=== PATIENT | female | born 2000 | race Caucasian/White ===

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

== ENCOUNTER 2020-05-21 08:00 | Emergency (ER) | payer OTHER, MEDICAID, SELFPAY ==
[2020-05-21 08:18] VITALS: BP 108/59; PULSE 62; RESP 16; TEMP 36.4; O2SAT 100; BMI 25.6
--- NOTE | 2020-05-21 08:22 | ED_ITS ---
HPI - URI/Sore Throat General Chief Complaint: Upper Respiratory Symptoms Stated Complaint: sore throat, puss, cough, sob, poss UTI Time Seen by Provider: 05/21/20 08:22 Source: patient Mode of arrival: Ambulatory Limitations: no limitations History of Present Illness HPI Narrative: This is a 20-year-old female comes in with complaint of red tonsils and she states pus pockets. She denies any fevers, no chills, no hoarseness or pain in the back of her throat. She has had some mild nasal congestion. She states a little bit of cough occasional shortness of breath, no chest pain or pressure. No nausea, no vomiting, no other GI or urinary symptoms except for some dysuria occasionally but not currently. No frequency, sense of incomplete emptying or sense of urgency. She is currently on her menses. Patient states she did develop a rash for several hours about a week ago that was itchy on her back. She states resolved and has not returned. She states that she was positive for strep C several weeks ago the initial point of care strep was negative but the culture came back positive and she took cephalexin and dexamethasone and her symptoms resolved. She denies any other medication issues besides IBS, she takes sertraline daily. No prior surgeries. She denies allergies to medications. Positive for tobacco use, denies alcohol and does use marijuana but no other illicit. Related Data Previous Rx's Medication Instructions Recorded cefdinir 300 mg PO BID #14 cap 06/19/19 dicyclomine 20 mg PO TID #14 tab 06/19/19 naproxen [Naprosyn] 500 mg PO BID PRN #20 tab 06/19/19 ondansetron HCl [Zofran] 4 mg PO Q6H PRN #10 tab 06/19/19 loratadine [Claritin] 10 mg PO DAILY #10 tab 05/21/20 Allergies Allergy/AdvReac Type Severity Reaction Status Date / Time No Known Drug Allergies Allergy Verified 06/18/19 20:50 Review of Systems Review of Systems ROS Unobtainable: All systems reviewed & are unremarkable except as noted in HPI and below Patient History Social History Smoking Status: Current every day smoker Smoking Status: Current every day smoker tobacco type: vaping Substance Use Type: marijuana Exam Narrative Exam Narrative: GEN: well nourished, well appearing female, alert and oriented x 3, patient appears to be in mild distress. HEENT: Atraumatic, pupils are equal round reactive to light, extraocular movements are intact, nares are clear, TMs are clear with no fluid. Throat is clear without any exudates, positive for bilateral erythema, very mild tonsillar enlargement, for positive for cobblestoning posterior oropharynx, no purulence changes noted, no uvular deviation HEART: Regular rate and rhythm without murmur, clicks, rubs. Pulses are equal in upper and lower extremities LUNGS:Lungs clear to auscultation, no wheezes, rales, crackles, chest moves symmetrically, tachypnea, no accessory muscle use. ABD:bowel sounds normal, soft, non-tender, no guarding, rebound, rigidity, no masses noted, no hepatosplenomegaly :No CVA tenderness MSCL: full range of motion, normal gait NEURO:CN 2-12 intact, sensation normal SKIN: No rash, erythema or skin changes noted. Initial Vital Signs Initial Vital Signs: Vital Signs Temperature 97.6 F 05/21/20 08:18 Pulse Rate 62 05/21/20 08:18 Respiratory Rate 16 05/21/20 08:18 Blood Pressure 108/59 L 05/21/20 08:18 Pulse Oximetry 100 05/21/20 08:18 Course Orders Ordered: ED Orders 05/21/20 08:50 Throat Culture Stat Vital Signs Vital signs: Vital Signs - 8 hr 05/21/20 08:18 05/21/20 09:15 Temperature 97.6 F 98.0 F Pulse Rate 62 57 L Respiratory Rate 16 12 Blood Pressure 108/59 L 104/63 Pulse Oximetry 100 97 MDM - URI/Sore Throat Lab Data Labs: Point of Care Testing Test Results Negative Rapid Strep A Negative Urine Dip Bedside Urine Glucose Negative Bedside Urine Bilirubin - Negative Bedside Urine Ketone - Negative Urine Specific [place] 1.030 Bedside Urine Occult Blood +++ Bedside Urine pH 6.0 Bedside Urine Protein - Negative Bedside Urine Urobilinogen - Negative Bedside Urine Nitrite - Negative Bedside Urine Leukocytes - Negative Esterase [facility] Narrative Medical decision making narrative: POC strep is negative the patient states she had a positive strep C culture several weeks ago so culture was reordered. Plan to recontact patient if it is positive but start with an oral antihistamine initially as she appears to have a little bit of postnasal drip. Discharge Plan Departure Patient Disposition: Home Clinical Impression: Pharyngitis Instructions: DI for Pharyngitis/Tonsillopharyngitis -- Adult Activity Restrictions/Additional Instructions: Follow-up with your physician in next week if her symptoms are not resolving or improving. Your throat culture is pending and will take 2-3 days to result. I would recommend taking Claritin, Zyrtec or similar [id number] antihistamine once daily. Return to the ER for fevers, rapidly worsening swelling, difficulty breathing or swallowing, stridor, difficulty with breathing, chest pain, persistent vomiting, swelling in her extremities or other new or concerning symptoms. Prescriptions: New loratadine [Claritin] 10 mg tablet 10 mg PO DAILY Qty: 10 RF: 0 No Action naproxen [Naprosyn] 500 mg tablet 500 mg PO BID PRN (Reason: pain) Qty: 20 RF: 0 ondansetron HCl [Zofran] 4 mg tablet 4 mg PO Q6H PRN (Reason: nausea and vomiting) Qty: 10 RF: 0 dicyclomine 20 mg tablet 20 mg PO TID Qty: 14 RF: 0 cefdinir 300 mg capsule 300 mg PO BID Qty: 14 RF: 0
[2020-05-21 09:15] VITALS: BP 104/63; PULSE 57; RESP 12; TEMP 36.7; O2SAT 97
== END 2020-05-21 09:15 | disposition home or self-care (01) ==
PROVIDERS: Emergency Provider Emergency Medicine
DX: J02.9 Acute pharyngitis, unspecified (principal); R09.82 Postnasal drip; R05 Cough; R06.02 Shortness of breath; R21 Rash and other nonspecific skin eruption
CPT/HCPCS: 81003; 81025; 87070; 87077; 87147; 87880; 99281; 99282

== ENCOUNTER 2020-08-23 23:34 | Emergency (ER) | payer OTHER, MEDICAID, SELFPAY ==
[2020-08-23 23:41] VITALS: BP 132/75; PULSE 85; RESP 18; TEMP 36.6; O2SAT 100; BMI 27.3
[2020-08-24 00:08] LABS: Bilirubin Urine UA NEGATIVE (NEGATIVE); Color Urine UA YELLOW; Glucose Urine UA NEGATIVE (Negative); Ketones Urine UA TRACE (NEGATIVE); Leukocyte Esterase Urine UA 2+ (NEGATIVE); Nitrite Urine UA NEGATIVE (Negative); Occult Blood Urine UA 3+ (Negative); Protein Urine UA NEGATIVE (Negative); Urobilinogen Urine UA 0.2 E.U./dL (0.2)
[2020-08-24 00:11] LABS: Appearance Urine UA Slightly Cloudy
--- NOTE | 2020-08-24 00:12 | ED.GENADULT ---
HPI - General Adult General Chief complaint: Urogenital-Female Stated complaint: UTI getting worse Time Seen by Provider: 08/23/20 23:55 Source: patient Mode of arrival: Ambulatory Limitations: no limitations History of Present Illness HPI narrative: Patient is a 20-year-old female who 3 days ago was seen in outside facility after having some lower pelvic pain. She states she was diagnosed with a urinary tract infection. She was given a prescription for Bactrim. She is take 1.5 days worth of the Bactrim. She did not take any of the antibiotics today because she did not feel like it was helping her. Since that time she has developed more symptoms consistent with her prior history of yeast infections. She states she has had urinary tract infections in the past and this does not feel like a urinary tract infection. She has had multiple yeast infections in the past and this does feel like a yeast infection. She does admit that it did not feel like this a couple days ago when she was seen. She has no back pain. No vomiting. States that Diflucan has helped her in the past. Related Data Previous Rx's Medication Instructions Recorded cefdinir 300 mg PO BID #14 cap 06/19/19 dicyclomine 20 mg PO TID #14 tab 06/19/19 naproxen [Naprosyn] 500 mg PO BID PRN #20 tab 06/19/19 ondansetron HCl [Zofran] 4 mg PO Q6H PRN #10 tab 06/19/19 loratadine [Claritin] 10 mg PO DAILY #10 tab 05/21/20 fluconazole [Diflucan] 150 mg PO DAILY #1 tab 08/24/20 Allergies Allergy/AdvReac Type Severity Reaction Status Date / Time No Known Drug Allergies Allergy Verified 06/18/19 20:50 Review of Systems Constitutional Constitutional: Denies fever(s) Cardiovascular Cardiovascular: Denies chest pain and Denies dyspnea Respiratory Respiratory: Denies dyspnea Gastrointestinal Gastrointestinal: Reports abdominal pain, Denies nausea and Denies vomiting Genitourinary Genitourinary: Denies dysuria and Reports genital pain Genitourinary: Denies dysuria and Denies vaginal discharge Comments: She has no vaginal discharge but states she normally does not when she has used infections Musculoskeletal Musculoskeletal: Denies arthralgias and Denies myalgias Integumentary/Breasts Skin/Breast: Denies rash Neurologic Neurologic: Denies behavioral changes Psychiatric Psychiatric: Denies behavioral changes Hematologic/Lymphatic On Anticoagulants: No Allergic/Immunologic Allergic/Immunologic: Denies urticaria Patient History Medical History Yeast infection Social History Smoking Status: Current every day smoker Smoking Status: Current every day smoker tobacco type: vaping Substance Use Type: marijuana Exam Initial Vital Signs Initial Vital Signs: Vital Signs Temperature 98 F 08/23/20 23:41 Pulse Rate 85 08/23/20 23:41 Respiratory Rate 18 08/23/20 23:41 Blood Pressure 132/75 08/23/20 23:41 Pulse Oximetry 100 08/23/20 23:41 Const General: cooperative and comfortable Limitations: mental status not altered HENMT Head: normal to inspection and normocephalic Resp Effort & Inspection: normal respiratory effort Cardio Rate: regular rate GI Inspection: non-distended Palpation: soft, No firm and No tender Skin Lesions: no lesions Rashes: no rashes Neuro General: patient alert, patient awake and patient oriented x3 Cognition: normal cognition Extrem General: capillary refill normal Psych Appearance: grossly normal and well kempt Course Orders Ordered: ED Orders 08/23/20 23:45 Urine Culture Stat 08/23/20 23:50 Urinalysis and Microscopic Stat Discontinued Medications Fluconazole (Fluconazole 150 Mg Tablet) 150 mg PO NOW ONE Stop: 08/24/20 00:14 Last Admin: 08/24/20 00:33 Dose: 150 mg Documented by: BIJAL Vital Signs Vital signs: Vital Signs - 8 hr 08/23/20 23:41 Temperature 98 F Pulse Rate 85 Respiratory Rate 18 Blood Pressure 132/75 Pulse Oximetry 100 Medical Decision Making Lab Data Lab results reviewed: Yes I reviewed the patient's lab results. Labs: Lab Results 08/23/20 Range/Units 23:45 Urine Color Yellow Urine Appearance Slightly cloudy Urine pH 7.0 (4.5-8.0) Ur Specific [place] 1.020 (1.000-1.035) Urine Protein Negative (Negative) Urine Glucose (UA) Negative (Negative) g/dL Urine Ketones Trace H (NEGATIVE) Urine Occult Blood 3+ H (Negative) Urine Nitrate Negative (Negative) Urine Bilirubin Negative (NEGATIVE) Urine Urobilinogen 0.2 (0.2) E.U./dL Ur Leukocyte Esterase 2+ H (NEGATIVE) Urine RBC 1-5/hpf (0-5/HPF) Urine WBC 10-30/hpf H (0-5/HPF) Ur Squamous Epith Cells 1-5 /hpf D (0-5/HPF) Urine Bacteria Few (2-10) H (None) Ur Culture Indicated? Specimen cultured MDM Narrative Medical decision making narrative: Patient's urinalysis today is somewhat concerning about an infection. Patient states that she feels like that she has a yeast infection. Had a discussion with her regarding this. Plan will be is to give her dose of Diflucan here in the emergency department. Informed her that she should complete the course of Bactrim as previously prescribed. She was then given a prescription for another dose of Diflucan that she can take at the end of the course of antibiotics. Low suspicion for pyelonephritis today. Feel we can hold on I pelvic exam given her presentation. She was given return precautions and follow-up instructions. She expressed understanding and agreement. Discharge Plan Departure Patient Disposition: Home Clinical Impression: Vaginal yeast infection Instructions: DI for Vaginal Yeast Infection Activity Restrictions/Additional Instructions: I do recommend that you complete the course of antibiotics as previously directed. Take the Diflucan as directed as well with 1 of the tablets being at the end of your course of antibiotics. Contact your primary provider for follow-up. Return to the emergency department for any new or worsening symptoms Prescriptions: New fluconazole [Diflucan] 150 mg tablet 150 mg PO DAILY Qty: 1 RF: 0 No Action loratadine [Claritin] 10 mg tablet 10 mg PO DAILY Qty: 10 RF: 0 naproxen [Naprosyn] 500 mg tablet 500 mg PO BID PRN (Reason: pain) Qty: 20 RF: 0 ondansetron HCl [Zofran] 4 mg tablet 4 mg PO Q6H PRN (Reason: nausea and vomiting) Qty: 10 RF: 0 dicyclomine 20 mg tablet 20 mg PO TID Qty: 14 RF: 0 cefdinir 300 mg capsule 300 mg PO BID Qty: 14 RF: 0
[2020-08-24 00:23] LABS: Bacteria Urine Few (2-10); Culture Indicated Urine Specimen Cultured; RBC Urine 1-5/HPF (0-5/HPF); Squamous Epithelial Cell Urine 1-5 /HPF (0-5/HPF); WBC Urine 10-30/HPF (0-5/HPF)
[2020-08-24] MEDS: FLUCONAZOLE 150 MG TABLET PO (00:33)
== END 2020-08-24 00:38 | disposition home or self-care (01) ==
PROVIDERS: Emergency Provider Emergency Medicine
DX: B37.3 Candidiasis of vulva and vagina (principal)
CPT/HCPCS: 81001; 87077; 87086; 99283

== ENCOUNTER 2020-10-08 12:30 | Emergency (ER) | payer OTHER, MEDICAID, SELFPAY ==
[2020-10-08] VITALS (7 sets, daily range): BP systolic 96–107; BP diastolic 55–64; PULSE 68–91; RESP 16; TEMP 36.2; O2SAT 95–99; BMI 28.9
[2020-10-08 13:13] LABS: Add Manual Diff / Slide Review NO; Basophils Absolute Auto 100 /uL (0-100); Basophils Percent Auto 0.6 % (0-2); Eosinophils Absolute Auto 100 /uL (0-450); Eosinophils Percent Auto 1.3 % (2-4); Hematocrit 39.7 % (36-46); Hemoglobin 13.3 g/dL (12.0-16.0); Lymphocytes Absolute Auto 2300 /uL (1100-4500); Lymphocytes Percent Auto 24.7 % (25-40); Mean Corpuscular HGB Conc 33.6 % (30-36); Mean Corpuscular Hemoglobin 29.5 PG (26-34); Mean Corpuscular Volume 87.8 fL (80-100); Monocytes Absolute Auto 800 /uL (0-900); Monocytes Percent Auto 8.5 % (3-14); Neutrophils Absolute Auto 5900 /uL (1500-7000); Neutrophils Percent Auto 64.9 % (50-75); Platelet Count 307 X10^3/uL (150-400); Red Blood Cell Count 4.52 X10^6/uL (4.0-5.2); Red Cell Distribution Width 13.7 % (11.6-14.8); White Blood Cell Count 9.1 X10^3/uL (4.5-11.0)
[2020-10-08 13:16] LABS: INR 1.2 (0.9-1.3)
[2020-10-08 13:18] LABS: Alanine Aminotransferase 20 IU/L (<35); Albumin 4.6 g/dL (3.5-5.0); Albumin Globulin Ratio 1.4 (1.0-2.8); Alkaline Phosphatase 79 U/L (38-126); Aspartate Aminotransferase 27 IU/L (14-36); BUN Creatinine Ratio 27.1 (6-22); Blood Urea Nitrogen 16 mg/dL (7-17); Calcium 9.7 mg/dL (8.4-10.2); Carbon Dioxide 26 mmol/L (22-32); Chloride 103 mmol/L (98-107); Estimated Glomerular Filt Rate > 60.0 mL/min (>60); Globulin 3.4 g/dL (1.7-4.1); Glucose 143 mg/dL (70-100); HEMOLYSIS < 15 (0-50); Lipase 27 U/L (23-300); Potassium 3.6 mmol/L (3.4-5.1); Sodium 137 mmol/L (137-145)
[2020-10-08 13:19] LABS: PTT Partial Thromboplastin Tim 35 SECONDS (26.4-36.2)
--- NOTE | 2020-10-08 13:23 | DI.US.S_ITS ---
PROCEDURE: US PELVIC COMPLETE INDICATIONS: RLQ PAIN TECHNIQUE: Real-time scanning was performed of the pelvic organs, with image documentation. Additional endovaginal scanning was necessary due to incomplete visualization of the adnexal and endometrial structures by transabdominal scanning. COMPARISON: [facility], US, US PELVIC COMPLETE, 10/09/2018, 9:45. [facility], US, US ABDOMEN LIMITED, 06/19/2019, 3:33. FINDINGS: Uterus: Uterus is normal in size at 7.6 x 3.4 x 5.4 cm. The endometrium measures 9 mm in combined thickness. Ovaries: The right ovary measures 2.4 x 1.9 x 1.7 and demonstrates an unremarkable sonographic appearance. The left ovary measures 2.9 x 2.2 x 2.9 cm and demonstrates a solid-appearing mass with increased, low resistance vascular flow that measures 2.1 x 1.4 x 2.2 cm. This focus is not seen on the prior 2019 outside ultrasound. Normal appearing arterial waveforms are confirmed to each ovary. Other: No pathologic free abdominal or pelvic fluid. No appendix (either normal or abnormal) is identified on this study. IMPRESSION: Appendix not seen. Negative for ovarian torsion. Incidental note is made of an abnormal LEFT ovary, with a solid-appearing mass with increased low resistance flow. At clinical discretion, a followup pelvic ultrasound could be considered in 6 weeks to assure resolution/ improvement. Dictated by: Acosta Raymond M.D. on 10/08/2020 at 12:50 Approved by: Acosta Raymond M.D. on 10/08/2020 at 12:54
--- NOTE | 2020-10-08 13:46 | DI.CT.S_ITS ---
PROCEDURE: CT ABDOMEN PELVIS W CON INDICATIONS: RLQ pain, probably appe TECHNIQUE: After the administration of intravenous contrast, 5 mm thick sections acquired from the diaphragm to the symphysis. 5 mm coronal and sagittal reformats were acquired. For radiation dose reduction, the following was used: automated exposure control, adjustment of mA and/or kV according to patient size. COMPARISON: [facility], , US ABDOMEN LIMITED, 06/19/2019, 3:33. [facility], , US PELVIC COMPLETE, 10/08/2020, 13:32. FINDINGS: Image quality: Excellent. ABDOMEN: Lung bases: Lung bases are clear. Heart size is normal. Solid organs: Liver is normal in size and enhancement. Incidental note is made of focal fatty infiltration adjacent to the falciform ligament, which is not regarded to be pathologic. Gallbladder wall is not thickened. Biliary system is non dilated. Pancreas enhances normally. Spleen is normal in size and enhancement. No adrenal nodules. Kidneys demonstrate normal size and enhancement, without hydronephrosis. Peritoneum and bowel: In this patient with this given history, scrutiny is given to the appendix. The appendix is well seen, as on series 4, image 24. The appendix measures 5 mm in caliber, which is normal. No focal surrounding inflammatory changes are seen. Bowel loops demonstrate normal wall thickness and caliber. No free fluid or air. Nodes and vessels: No retroperitoneal or mesenteric adenopathy by size criteria. Aorta and inferior vena cava are normal in size. Miscellaneous: No ventral hernias. Incidental note is made of a metallic body ornamentation artifact. PELVIS: Genitourinary: Bladder wall thickness is normal. The uterus appears normal for age. No adnexal masses are seen. An apparent hemorrhagic cyst can be seen involving the left ovary, as on series 4, image 32 measuring 2 cm. Miscellaneous: No inguinal hernias or adenopathy. Bones: No suspicious bony lesions. No vertebral body compression fractures. IMPRESSION: Normal appendix. No focal right lower quadrant inflammatory changes are seen. Apparent left ovarian hemorrhagic cyst. At clinical discretion, a followup pelvic ultrasound could be considered in 6 weeks to assure resolution/ improvement. Dictated by: Acosta Raymond M.D. on 10/08/2020 at 14:14 Approved by: Acosta Raymond M.D. on 10/08/2020 at 14:17
--- NOTE | 2020-10-08 13:49 | ED_ITS ---
HPI - Abdominal Pain General Chief Complaint: Abdominal Pain Stated Complaint: Lower Abd Pain, Shooting in Rt Leg Time Seen by Provider: 10/08/20 12:53 Source: patient Mode of arrival: Ambulatory Limitations: no limitations History of Present Illness HPI narrative: Shea Presents today with chief complaint of abdominal pain that started this morning after waking up. She reports that she has been feeling a bit down the last 2 days and has had a decreased appetite. She only ate 1 small think of food yesterday and had a small bite this morning when she woke up. She has had slight nausea but denies any significant vomiting. She reports that her abdominal pain was or generalized yesterday but is now down t owards her right lower quadrant. She just finished her menses 1 week ago. She denies any significant abnormal vaginal discharge, vaginal irritation, urinary symptoms, vomiting, diarrhea, constipation, cough, shortness of breath or any other acute concerns or complaints at this time. She denies any previous abdominal surgeries. MD complaint: abdominal pain Onset (ago): day(s) (1) Pain Consistency: constant Severity scale (1-10): 7 Quality: aching Radiation: RLQ Related Data Previous Rx's Medication Instructions Recorded cefdinir 300 mg PO BID #14 cap 06/19/19 dicyclomine 20 mg PO TID #14 tab 06/19/19 naproxen [Naprosyn] 500 mg PO BID PRN #20 tab 06/19/19 ondansetron HCl [Zofran] 4 mg PO Q6H PRN #10 tab 06/19/19 loratadine [Claritin] 10 mg PO DAILY #10 tab 05/21/20 fluconazole [Diflucan] 150 mg PO DAILY #1 tab 08/24/20 Allergies Allergy/AdvReac Type Severity Reaction Status Date / Time No Known Drug Allergies Allergy Verified 06/18/19 20:50 Review of Systems Review of Systems ROS Unobtainable: All systems reviewed & are unremarkable except as noted in HPI and below Patient History Medical History Yeast infection Social History Smoking Status: Current every day smoker Smoking Status: Current every day smoker tobacco type: vaping Substance Use Type: marijuana Exam Narrative Exam Narrative: Exam Narrative: Const General: cooperative, healthy appearing, comfortable, no acute distress, well developed and well groomed Nutritional Appearance: average body habitus Orientation: alert and oriented x3 HENMT Head: normal to inspection and atraumatic Ears: hearing grossly normal bilaterally Nose: external nose normal and nares normal Face and sinus: normal facial exam Neck Neck: normal visual inspection and supple Resp Effort & Inspection: normal respiratory effort, able to speak in complete sentences, no audible wheezes, not labored, no nasal flaring and no respiratory distress, clear to auscultation bilaterally Cardiac Regular rate and rhythm with no discernible murmurs, rubs or gallops GI Nondistended, normal bowel sounds. Right lower quadrant tenderness with palpation. Rebound tenderness positive. Positive Rovsing sign. Negative Rizvi sign. Neuro General: alert, oriented x3, gait normal, tone normal and moves all extremities Cognition: normal cognition Speech: speech normal Gait: normal gait Psych Appearance: grossly normal and well kempt Mental Status: mental status grossly normal Speech and Movement: speech and movement normal Mood: congruent mood Affect: normal affect Initial Vital Signs Initial Vital Signs: Vital Signs Temperature 97.2 F L 10/08/20 12:41 Pulse Rate 91 H 10/08/20 12:41 Respiratory Rate 16 10/08/20 12:41 Blood Pressure 107/64 10/08/20 12:41 Pulse Oximetry 98 10/08/20 12:41 Course Orders Ordered: ED Orders 10/08/20 12:52 Complete Blood Count AUTO DIFF Stat Comprehensive Metabolic Panel Stat Lipase Stat Partial Thromboplastin Time Stat Prothrombin Time INR Stat 10/08/20 13:23 US pelvic complete Stat 10/08/20 13:46 CT abdomen pelvis w con Stat Vital Signs Vital signs: Vital Signs - 8 hr 10/08/20 12:41 10/08/20 12:47 10/08/20 13:00 Temperature 97.2 F L Pulse Rate 91 H 80 78 Respiratory Rate 16 Blood Pressure 107/64 Pulse Oximetry 98 98 98 10/08/20 13:30 10/08/20 14:00 10/08/20 16:01 Temperature Pulse Rate 72 68 79 Respiratory Rate Blood Pressure Pulse Oximetry 99 97 95 10/08/20 16:02 Temperature Pulse Rate 77 Respiratory Rate Blood Pressure 96/55 L Pulse Oximetry 96 MDM - Abdominal Pain Medical Records Attestation: I reviewed the patient's medical records. Medical records narrative: Lab Data Attestation: I reviewed the patient's lab results. Result diagrams: 10/08/20 12:52 10/08/20 12:52 Labs: Lab Results 10/08/20 10/08/20 10/08/20 Range/Units 12:52 12:52 12:52 WBC 9.1 (4.5-11.0) X10^3/uL RBC 4.52 (4.0-5.2) X10^6/uL Hgb 13.3 (12.0-16.0) g/dL Hct 39.7 (36-46) % MCV 87.8 (80-100) fL MCH 29.5 (26-34) PG MCHC 33.6 (30-36) % RDW 13.7 (11.6-14.8) % Plt Count 307 (150-400) X10^3/uL Neut % (Auto) 64.9 (50-75) % Lymph % (Auto) 24.7 L (25-40) % [place] % (Auto) 8.5 (3-14) % Eos % (Auto) 1.3 L (2-4) % Baso % (Auto) 0.6 (0-2) % Neut # (Auto) 5900 (9927-5916) /uL Lymph # (Auto) 2300 (1871-7691) /uL [place] # (Auto) 800 (0-900) /uL Eos # (Auto) 100 (0-450) /uL Baso # (Auto) 100 (0-100) /uL PT 13.0 H (10.1-12.7) SECONDS INR 1.2 (0.9-1.3) APTT 35 (26.4-36.2) SECONDS Sodium 137 (137-145) mmol/L Potassium 3.6 (3.4-5.1) mmol/L Chloride 103 (98-107) mmol/L Carbon Dioxide 26 (22-32) mmol/L BUN 16 (7-17) mg/dL Creatinine 0.59 (0.52-1.04) mg/dL Estimated GFR > 60.0 (>60) mL/min BUN/Creatinine Ratio 27.1 H (6-22) Glucose 143 H (70-100) mg/dL Calcium 9.7 (8.4-10.2) mg/dL Total Bilirubin 1.0 (0.2-1.3) mg/dL AST 27 (14-36) IU/L ALT 20 (<35) IU/L Alkaline Phosphatase 79 (38-126) U/L Total Protein 8.0 (6.3-8.2) g/dL Albumin 4.6 (3.5-5.0) g/dL Globulin 3.4 (1.7-4.1) g/dL Albumin/Globulin Ratio 1.4 (1.0-2.8) Lipase 27 (23-300) U/L Point of care testing: Point of Care Testing Test Results Negative Urine Dip Bedside Urine Glucose Negative Bedside Urine Bilirubin - Negative Bedside Urine Ketone +/- 5 Urine Specific [place] 1.030 Bedside Urine Occult Blood +/- Bedside Urine pH 6 Bedside Urine Protein +/- 15 Bedside Urine Urobilinogen - Negative Bedside Urine Nitrite - Negative Bedside Urine Leukocytes - Negative Esterase MDM Narrative Medical decision making narrative: Wide differential considered including acute appendicitis, pyelonephritis, ovarian torsion, ovarian cyst, PID, constipation, IBS. Has significant past medical history of irritable bowel syndrome. She does not have any significant elevation in her white blood cell count and a both ultrasound and CT scan are reassuring for no acute intra- abdominal pathology. She was noted to have left ovarian cyst. This could be what is causing her symptoms. Recommend OTCs for symptomatic management with strict return precautions if her symptoms worsen. Patient verbalizes understanding and agrees to plan and has no further concerns at this time. Thank you A [id number] system was used with the dictation of this note. Please disregard any spelling or grammatical errors. Discharge Plan Departure Patient Disposition: Home Clinical Impression: Abdominal pain Qualifiers: Abdominal location: unspecified location Qualified Code(s): R10.9 - Unspecified abdominal pain Ovarian cyst Qualifiers: Laterality: left Qualified Code(s): N83.202 - Unspecified ovarian cyst, left side Discharge Date/Time: 10/08/20 16:05 Instructions: DI for Abdominal Pain-Adult Prescriptions: No Action loratadine [Claritin] 10 mg tablet 10 mg PO DAILY Qty: 10 RF: 0 fluconazole [Diflucan] 150 mg tablet 150 mg PO DAILY Qty: 1 RF: 0 naproxen [Naprosyn] 500 mg tablet 500 mg PO BID PRN (Reason: pain) Qty: 20 RF: 0 ondansetron HCl [Zofran] 4 mg tablet 4 mg PO Q6H PRN (Reason: nausea and vomiting) Qty: 10 RF: 0 dicyclomine 20 mg tablet 20 mg PO TID Qty: 14 RF: 0 cefdinir 300 mg capsule 300 mg PO BID Qty: 14 RF: 0 Referrals: Miscellaneous,Doctor, MD [Primary Care Provider] -
== END 2020-10-08 16:05 | disposition home or self-care (01) ==
PROVIDERS: Emergency Medicine; Emergency Provider Physician Assistant
DX: N83.202 Unspecified ovarian cyst, left side (principal); R11.0 Nausea
CPT/HCPCS: 36415; 74177; 76830; 76856; 80053; 81003; 81025; 83690; 85025; 85610; 85730; 99283; 99284; Q9967

== ENCOUNTER 2020-10-11 12:53 | Emergency (ER) | payer OTHER, MEDICAID, SELFPAY ==
[2020-10-11 13:18] VITALS: BP 111/69; PULSE 61; RESP 14; TEMP 36.8; O2SAT 100; BMI 27.4
[2020-10-11 16:30] VITALS: BP 101/60; PULSE 55; RESP 19; O2SAT 100
--- NOTE | 2020-10-11 17:24 | ED_ITS ---
HPI - General Adult General Chief complaint: Abdominal Pain Stated complaint: BAD ABD CRAMPING Time Seen by Provider: 10/11/20 17:08 Source: patient Mode of arrival: Ambulatory Limitations: no limitations History of Present Illness HPI narrative: Patient is a 20-year-old female here for evaluation of abdominal cramping and lower abdominal discomfort. She reports a history of chlamydia but this was several years ago and was treated for this. She has been sexually active in the past but not currently. She is having vaginal discharge. Has not tried anything for symptoms prior to arrival. Related Data Previous Rx's Medication Instructions Recorded cefdinir 300 mg PO BID #14 cap 06/19/19 dicyclomine 20 mg PO TID #14 tab 06/19/19 naproxen [Naprosyn] 500 mg PO BID PRN #20 tab 06/19/19 ondansetron HCl [Zofran] 4 mg PO Q6H PRN #10 tab 06/19/19 loratadine [Claritin] 10 mg PO DAILY #10 tab 05/21/20 fluconazole [Diflucan] 150 mg PO DAILY #1 tab 08/24/20 fluconazole [Diflucan] 100 mg PO DAILY #2 tab 10/11/20 metronidazole [Flagyl] 500 mg PO BID 7 Days #14 tab 10/11/20 Allergies Allergy/AdvReac Type Severity Reaction Status Date / Time ibuprofen Allergy Verified 10/11/20 13:18 Review of Systems Constitutional Constitutional: Denies fever(s) Cardiovascular Cardiovascular: Reports system reviewed and no additional complaints, except as documented Respiratory Respiratory: Reports system reviewed and no additional complaints, except as do cumented Gastrointestinal Gastrointestinal: Reports abdominal pain and Reports cramping Genitourinary Genitourinary: Denies hematuria Genitourinary: Denies hematuria and Reports vaginal discharge Musculoskeletal Musculoskeletal: Reports system reviewed and no additional complaints, except as documented Integumentary/Breasts Skin/Breast: Reports system reviewed and no additional complaints, except as documented Neurologic Neurologic: Reports system reviewed and no additional complaints, except as documented Hematologic/Lymphatic On Anticoagulants: No Allergic/Immunologic Allergic/Immunologic: Reports system reviewed and no additional complaints, except as documented Patient History Medical History Yeast infection Social History Smoking Status: Current every day smoker Smoking Status: Current every day smoker tobacco type: vaping alcohol intake frequency: holidays/special occasions only Substance Use Type: marijuana Exam Initial Vital Signs Initial Vital Signs: Vital Signs Temperature 98.2 F 10/11/20 13:18 Pulse Rate 61 10/11/20 13:18 Respiratory Rate 14 10/11/20 13:18 Blood Pressure 111/69 10/11/20 13:18 Pulse Oximetry 100 10/11/20 13:18 Const General: cooperative and comfortable Limitations: mental status not altered HENMT Head: normal to inspection and normocephalic Resp Effort & Inspection: normal respiratory effort Cardio Rate: regular rate GI Inspection: non-distended Palpation: soft and tender (Lower abdomen/adnexa) General: bladder normal to palpation and CVA tenderness External Female Exam: normal external appearance Speculum Exam - Vagina: not erythematous and No vaginal bleeding Speculum Exam - Cervix: closed, no lesions and tender Bimanual Exam- Vagina & Uterus: bladder normal to palpation, tender and cervical motion tenderness Bimanual Exam- Adnexa, other: no masses and tender bilaterally OB/External & Speculum: No vaginal bleeding Skin Lesions: no lesions Rashes: no rashes Neuro General: patient alert and patient awake Cognition: normal cognition Speech: speech normal Extrem General: normal to inspection and capillary refill normal Psych Appearance: grossly normal and well kempt Course Orders Ordered: Discontinued Medications Azithromycin (Azithromycin 250 Mg Tablet) 1,000 mg PO NOW ONE Stop: 10/11/20 19:39 Last Admin: 10/11/20 19:53 Dose: 1,000 mg Documented by: EDA Ceftriaxone Sodium (Ceftriaxone 1,000 Mg Vial) 250 mg IM NOW ONE Stop: 10/11/20 19:39 Last Admin: 10/11/20 19:51 Dose: 250 mg Documented by: EDA Metronidazole (Metronidazole 500 Mg Tablet) 500 mg PO NOW ONE Stop: 10/11/20 19:39 Last Admin: 10/11/20 19:53 Dose: 500 mg Documented by: EDA Vital Signs Vital signs: Vital Signs - 8 hr 10/11/20 13:18 10/11/20 16:30 Temperature 98.2 F Pulse Rate 61 55 L Respiratory Rate 14 19 Blood Pressure 111/69 101/60 Pulse Oximetry 100 100 Medical Decision Making Lab Data Lab results reviewed: Yes I reviewed the patient's lab results. Labs: Point of Care Testing Test Results Negative Urine Dip Bedside Urine Glucose Negative Bedside Urine Bilirubin - Negative Bedside Urine Ketone - Negative Urine Specific [place] 1.030 Bedside Urine Occult Blood - Negative Bedside Urine pH 6.0 Bedside Urine Protein - Negative Bedside Urine Urobilinogen - Negative Bedside Urine Nitrite - Negative Bedside Urine Leukocytes - Negative Esterase Point of care testing: Point of Care Testing Test Results Negative Urine Dip Bedside Urine Glucose Negative Bedside Urine Bilirubin - Negative Bedside Urine Ketone - Negative Urine Specific [place] 1.030 Bedside Urine Occult Blood - Negative Bedside Urine pH 6.0 Bedside Urine Protein - Negative Bedside Urine Urobilinogen - Negative Bedside Urine Nitrite - Negative Bedside Urine Leukocytes - Negative Esterase MDM Narrative Medical decision making narrative: Her test is negative. Urinalysis is unremarkable. No signs of yeast infection. Does have clue cells. No Trichomonas. Given her presentation and her vaginal discharge we will treat her for bacterial vaginosis. She was given a 1st dose of metronidazole here in the ER and will send home with a prescription for the remainder. She also has cervical motion tenderness and bilateral adnexal tenderness. Had a discussion with her regarding the possibility of PID and the risks and benefits of treating her with antibiotics versus not based on these clinical symptoms. After this discussion we will treat her for PID. She was given Rocephin and azithromycin here in the emergency department. She was informed that this would cover any potential gonorrhea and chlamydia although given her history I have low suspicion for this. She was also given Diflucan because she states that when she takes antibiotics she frequently gets yeast infections. Will have her follow-up with her primary doctor. She was given strict return precautions. She expressed understanding and agreement. Discharge Plan Departure Patient Disposition: Home Clinical Impression: Acute pelvic inflammatory disease (PID), Bacterial vaginosis Instructions: DI for Pelvic Inflammatory Disease (PID), DI for Bacterial Vaginosis Activity Restrictions/Additional Instructions: Take the antibiotics as directed. Contact your primary provider for a follow- up. Return to the emergency department for any new or worsening symptoms Prescriptions: New metronidazole [Flagyl] 500 mg tablet 500 mg PO BID 7 Days Qty: 14 RF: 0 fluconazole [Diflucan] 100 mg tablet 100 mg PO DAILY Qty: 2 RF: 0 No Action loratadine [Claritin] 10 mg tablet 10 mg PO DAILY Qty: 10 RF: 0 fluconazole [Diflucan] 150 mg tablet 150 mg PO DAILY Qty: 1 RF: 0 naproxen [Naprosyn] 500 mg tablet 500 mg PO BID PRN (Reason: pain) Qty: 20 RF: 0 ondansetron HCl [Zofran] 4 mg tablet 4 mg PO Q6H PRN (Reason: nausea and vomiting) Qty: 10 RF: 0 dicyclomine 20 mg tablet 20 mg PO TID Qty: 14 RF: 0 cefdinir 300 mg capsule 300 mg PO BID Qty: 14 RF: 0
[2020-10-11] MEDS: cefTRIAXone 1,000 MG VIAL 250 MG IM (19:51)
[2020-10-11] MEDS: LIDOCAINE 1% (PF) 2 ML (19:52)
[2020-10-11] MEDS: AZITHROMYCIN 250 MG TABLET 1000 MG PO (19:53)
[2020-10-11] MEDS: metroNIDAZOLE 500 MG TABLET PO (19:53)
[2020-10-11 20:20] VITALS: BP 123/67; PULSE 90; RESP 16; O2SAT 99
== END 2020-10-11 20:34 | disposition home or self-care (01) ==
PROVIDERS: Emergency Provider Emergency Medicine
DX: N73.9 Female pelvic inflammatory disease, unspecified (principal); N76.0 Acute vaginitis
CPT/HCPCS: 81003; 81025; 87070; 87205; 87210; 87220; 96372; 99283; 99284; J0696

== ENCOUNTER → 2021-01-28 10:45 | Outpatient (CLI) | payer OTHER, MEDICAID, SELFPAY ==
[2021-01-28 11:12] LABS: COVID19 -Nasal RAPID Negative (Negative)
== END ==
PROVIDERS: Visit Provider Nurse Practitioner Family
DX: R09.89 Other specified symptoms and signs involving the circulatory and respiratory systems (principal); Z20.822 Contact with and (suspected) exposure to COVID-19
CPT/HCPCS: 87635

== ENCOUNTER 2021-06-07 17:32 | Emergency (ER) | payer OTHER, MEDICAID, SELFPAY ==
[2021-06-07 17:41] VITALS: BP 145/82; PULSE 83; RESP 16; TEMP 37.2; O2SAT 97; BMI 27.4
--- NOTE | 2021-06-07 17:43 | DI.RAD.S_ITS ---
PROCEDURE: XR CHEST 1V INDICATIONS: chest pain TECHNIQUE: One view of the chest was acquired. COMPARISON: None. FINDINGS: Surgical changes and devices: None. Lungs and pleura: Lungs are clear. No pleural effusions or pneumothorax. Mediastinum: Mediastinal contours appear normal. Heart size is normal. Bones and chest wall: No suspicious bony lesions. Overlying soft tissues appear unremarkable. IMPRESSION: No acute cardiopulmonary abnormalities or focal airspace disease. Dictated by: Dereje Hernandez M.D. on 06/07/2021 at 18:09 Approved by: Dereje Hernandez M.D. on 06/07/2021 at 18:09
[2021-06-07 18:00] VITALS: PULSE 82; RESP 24; O2SAT 96
--- NOTE | 2021-06-07 18:08 | ED_ITS ---
HPI - Chest Pain General Chief Complaint: Chest Pain Stated Complaint: chest pain , thinks from medication Time Seen by Provider: 06/07/21 17:43 History of Present Illness HPI narrative: 21-year-old female daily smoker with history of reactive airway disease presents with a chief complaint of reproducible anterior chest and bilateral rib pain over the past few days. She had been having cough and wheeze and was seen at an outside facility on Friday. She had a thorough physical exam, chest x-ray was negative and COVID testing was negative. She had been without her albuterol inhaler which was refilled, she was given cough medicine as well as a steroid taper. Her cough is greatly improved, she denies any runny nose, sneezing. She has had no ongoing fever or chills. She denies nausea, vomiting or diarrhea. She has had no hemoptysis, denies shortness of breath or tachycardia, denies any lower extremity pain, swelling or redness and has no history of clots. She takes no control. She states that the skin overlying her ribs and back hurts even with something is minor is putting on her T shirt Related Data Previous Rx's Medication Instructions Recorded cefdinir 300 mg capsule 300 mg PO BID #14 cap 06/19/19 dicyclomine 20 mg tablet 20 mg PO TID #14 tab 06/19/19 naproxen 500 mg tablet (Naprosyn) 500 mg PO BID PRN #20 tab 06/19/19 ondansetron HCl 4 mg tablet 4 mg PO Q6H PRN #10 tab 06/19/19 (Zofran) loratadine 10 mg tablet (Claritin) 10 mg PO DAILY #10 tab 05/21/20 fluconazole 150 mg tablet 150 mg PO DAILY #1 tab 08/24/20 (Diflucan) fluconazole 100 mg tablet 100 mg PO DAILY #2 tab 10/11/20 (Diflucan) mupirocin 2 % topical ointment 1 applic TOPICAL TID #15 g 01/28/21 Allergies Allergy/AdvReac Type Severity Reaction Status Date / Time cetirizine [From [facility] [[email or web address] Allergy Verified 01/28/21 10:42 ibuprofen Allergy Verified 01/28/21 10:42 Review of Systems Review of Systems Narrative: GENERAL: See HP HEENT: Denies sinus pain, ear pain, sore throat, difficulty swallowing, dizziness. RESPIRATORY: See HPI CARDIOVASCULAR: See HPI, GASTROINTESTINAL: Denies nausea, vomiting, abdominal pain, diarrhea, constipation, melena. : Denies dysuria, frequency, incontinence, hematuria, urinary retention. MUSCULOSKELETAL: denies weakness, joint pain, or bony pain SKIN: See HP NEUROLOGIC: Denies weakness, headache, numbness, change in speech, confusion, seizures, incoordination. PSYCHIATRIC: No concerning psychosocial issues. 12 point review of systems is negative except for those stated above Patient History Medical History Yeast infection Social History Smoking Status: Current every day smoker Smoking Status: Current every day smoker tobacco type: vaping alcohol intake frequency: holidays/special occasions only Substance Use Type: marijuana Exam Narrative Exam Narrative: GENERAL: [21 year old patient appears stated age. Well-developed patient, in mild distress. No respiratory distress, no tachycardia, tachypnea or hypoxemia HEAD: Atraumatic. Normocephalic. EYES: Pupils equal round and reactive. Extraocular motions intact. No scleral icterus. No injection or drainage. ENT: Nose without bleeding, purulent drainage. Throat without erythema, tonsillar hypertrophy or exudate. Airway patent. NECK: Trachea midline. Non tender CARDIOVASCULAR: Regular rate and rhythm without murmurs, gallops, or rubs. Anterior chest, lateral and posterior ribs tender to slight touch. RESPIRATORY: Clear to auscultation. Breath sounds equal bilaterally. No wheezes, rales, or rhonchi. GASTROINTESTINAL: Abdomen soft, non-tender, nondistended. EXTREMITIES: No edema or joint tenderness. BACK: Nontender without deformity or crepitance. No flank tenderness. NEURO: AOx3. SKIN: No rash or erythema of visible areas Initial Vital Signs Initial Vital Signs: Vital Signs Temperature 99.0 F 06/07/21 17:41 Pulse Rate 83 06/07/21 17:41 Respiratory Rate 16 06/07/21 17:41 Blood Pressure 145/82 H 06/07/21 17:41 Pulse Oximetry 97 06/07/21 17:41 Scores PERC Score Age greater than or equal to 50 years: No Heart rate greater than or equal to 100 bpm: No Room Air O2 Sat less than 95%: No Unilateral leg swelling: No Recent trauma or surgery: No Hemoptysis: No Prior PE or DVT: No Hormone Use: No Total PERC Score: 0 Wells' Criteria for PE Clinical signs and symptoms of DVT: No PE is #1 Dx or equally likely: No Heart rate > 100: No Immobilization at least 3 days or surg in previous 4 weeks: No History of PE or DVT: No Hemoptysis: No Malignancy w/Treatment within 6 months or palliative: No Wells' PE Score total: 0 Course Orders Ordered: ED Orders 06/07/21 17:43 XR chest 1V Stat EKG-12 Lead Stat 06/07/21 18:40 COVID19 -Nasal swab/Pre-Proc Stat Discontinued Medications Acetaminophen (Acetaminophen 325 Mg Tablet) 975 mg PO NOW ONE Stop: 06/07/21 18:34 Last Admin: 06/07/21 18:39 Dose: 975 mg Documented by: EDA Vital Signs Vital signs: Vital Signs - 8 hr 06/07/21 17:41 06/07/21 18:00 06/07/21 18:30 Temperature 99.0 F Pulse Rate 83 82 93 H Respiratory Rate 16 24 17 Blood Pressure 145/82 H Pulse Oximetry 97 96 97 06/07/21 19:00 06/07/21 19:30 06/07/21 19:38 Temperature Pulse Rate 75 74 Respiratory Rate 22 22 Blood Pressure 100/62 Pulse Oximetry 95 97 MDM - Chest Pain Lab Data Labs: Lab Results 06/07/21 Range/Units 18:40 SARS-CoV-2 (PCR) Negative (Negative) Imaging Data Chest x-ray: Radiologist's Impression: Shea Dunham??21??F??2000 ? Allergy/Adv: cetirizine, ibuprofen Close Chest X-Ray (Signed) Dereje Hernandez - 06/07/21 Abdomen/Pelvis CT (Signed) Acosta Raymond - 10/08/20 Pelvis Ultrasound (Signed) Acosta Raymond - 10/08/20 Abdomen Ultrasound (Signed) Boyd Devi - 06/19/19 Launch?[address] [address] XRay Report Signed Patient: Shea Dunham MR#: [id number] : 2000 Acct:[id number] Age/Sex: 21 / F Date of Service: 06/07/21 Loc: ED Accession Number: [id number] ?? Procedure: XR chest 1V Ordering Provider: Candido Gonzalez D.O. PROCEDURE:? XR CHEST 1V ? INDICATIONS:? chest pain ? TECHNIQUE:? One view of the chest was acquired.? ? COMPARISON:? None. ? FINDINGS:? ? Surgical changes and devices:? None.? ? Lungs and pleura:? Lungs are clear.? No pleural effusions or pneumothorax.? ? Mediastinum:? Mediastinal contours appear normal.? Heart size is normal.? ? Bones and chest wall:? No suspicious bony lesions.? Overlying soft tissues appear unremarkable.? ? IMPRESSION:? No acute cardiopulmonary abnormalities or focal airspace disease. ? Dictated by: Dereje Hernandez M.D. on 06/07/2021 at 18:09 ? ? Approved by: Dereje Hernandez M.D. on 06/07/2021 at 18:09 ? ECG Data Interpretation: EKG is normal sinus rhythm rate [76 ] and free of any signs of ischemia or ectopy. No ST segmental elevation or depression. No T wave inversions MDM Narrative Medical decision making narrative: 21-year-old female smoker with reassuring history and physical exam. She has had likely upper respiratory infection with asthma exacerbation and now a reproducible chest pain. Repeat chest x-ray is clear, she shows no signs of respiratory distress, no tachypnea, use of accessory muscles, hypoxemia. She is not tachycardic. Pulmonary embolism considered but thought unlikely given negative wells and negative PERC. Discharge Plan Departure Patient Disposition: Home Clinical Impression: Atypical chest pain Instructions: DI for Atypical Chest Pain Activity Restrictions/Additional Instructions: *You have been diagnosed with [atypical chest pain]. Your history, physical exam, xray and EKG are very reassuring. There is no suggestion of blood clot, heart attack, bacterial pneumonia (which would require antibiotics, or other diagnosis that would require a specific or immediate intervention *What to do: *Please continue to take your regular medications as directed. [ ] New medication prescriptions sent to your pharmacy: [ ] [ ] New medication written as a paper prescription [ ] No new medications given *Please follow up with your primary care provider in 2-3 days, call for an appointment. Let them know you were seen in the Emergency Department and that we ask that you be seen in follow up. We will electronically transmit a record of today's note if your PCP is in our system *If you do not have a primary care provider please contact the [facility] Resource line at [phone]. They will ask some questions about your medical history and help get you set up with a doctor in the community. *Return to Emergency Department if you should have any new, worsening or concerning symptoms, such as [fever greater than 101 F, shaking chills, worsening pain, persistent vomiting or other bothersome symptoms] Prescriptions: No Action mupirocin 2 % ointment 1 applic topical TID Qty: 15 0RF loratadine [Claritin] 10 mg tablet 10 mg PO DAILY Qty: 10 0RF fluconazole [Diflucan] 150 mg tablet 150 mg PO DAILY Qty: 1 0RF Rx Instructions: use as directed naproxen [Naprosyn] 500 mg tablet 500 mg PO BID PRN (Reason: pain) Qty: 20 0RF ondansetron HCl [Zofran] 4 mg tablet 4 mg PO Q6H PRN (Reason: nausea and vomiting) Qty: 10 0RF dicyclomine 20 mg tablet 20 mg PO TID Qty: 14 0RF Rx Instructions: take as needed for abdominal cramps. cefdinir 300 mg capsule 300 mg PO BID Qty: 14 0RF fluconazole [Diflucan] 100 mg tablet 100 mg PO DAILY Qty: 2 0RF
[2021-06-07 18:30] VITALS: PULSE 93; RESP 17; O2SAT 97
[2021-06-07] MEDS: ACETAMINOPHEN 325 MG TABLET 975 MG PO (18:39)
[2021-06-07 19:00] VITALS: PULSE 75; RESP 22; O2SAT 95
[2021-06-07 19:08] LABS: COVID19 -Nasal RAPID Negative (Negative)
[2021-06-07 19:30] VITALS: PULSE 74; RESP 22; O2SAT 97
[2021-06-07 19:38] VITALS: BP 100/62
== END 2021-06-07 19:41 | disposition home or self-care (01) ==
PROVIDERS: Emergency Provider Emergency Medicine
DX: R07.89 Other chest pain (principal); F17.290 Nicotine dependence, other tobacco product, uncomplicated; Z20.822 Contact with and (suspected) exposure to COVID-19
CPT/HCPCS: 71045; 87635; 93005; 99283; 99284; C9803

== ENCOUNTER → 2021-06-18 17:10 | Outpatient (CLI) | payer OTHER, MEDICAID, SELFPAY | PROVIDERS: Visit Provider Nurse Practitioner Family | DX: N34.3 Urethral syndrome, unspecified (principal); N89.8 Other specified noninflammatory disorders of vagina | CPT/HCPCS: 81002; 87086; 87210 ==

== ENCOUNTER → 2021-06-19 12:28 | Outpatient (CLI) | payer OTHER, MEDICAID, SELFPAY ==
[2021-06-19 12:49] LABS: Pregnancy Test Urine Negative (Negative)
[2021-06-19 14:15] LABS: Urine N gonorrhoeae NOT DETECTED
[2021-06-19 14:30] LABS: Urine Chlamydia NOT DETECTED
== END ==
PROVIDERS: Referring Provider Nurse Practitioner Family; Visit Provider Nurse Practitioner Family
DX: Z13.9 Encounter for screening, unspecified (principal); R10.9 Unspecified abdominal pain
CPT/HCPCS: 81025; 87491; 87591

== ENCOUNTER → 2021-06-21 13:26 | Outpatient (CLI) | payer OTHER, MEDICAID, SELFPAY ==
[2021-06-21 14:06] LABS: HCG Quantitative /Beta subunit < 2.4 mIU/mL
== END ==
PROVIDERS: Referring Provider Physician Assistant; Visit Provider Physician Assistant
DX: R10.2 Pelvic and perineal pain (principal)
CPT/HCPCS: 36415; 84702

== ENCOUNTER → 2021-06-26 14:45 | Outpatient (CLI) | payer OTHER, MEDICAID, SELFPAY ==
--- NOTE | 2021-06-26 14:47 | DI.US.S_ITS ---
PROCEDURE: US PELVIC COMPLETE INDICATIONS: PAIN TECHNIQUE: Real-time scanning was performed of the pelvic organs, with image documentation. Additional endovaginal scanning was necessary due to incomplete visualization of the adnexal and endometrial structures by transabdominal scanning. COMPARISON: [facility], US, US PELVIC COMPLETE, 10/08/2020, 13:32. FINDINGS: Uterus: Uterus is anteverted and normal in size at 8.2 x 4.1 x 5.3 cm. The myometrium is homogeneous. The endometrium measures 11.6 mm combined thickness. Ovaries: The right and left ovaries measure 2.8 x 2.3 x 2.6 cm in 3.1 x 2.0 x 2.4 cm respectively. There is normal echotexture vascularity present. Complex 1.5 x 1.8 cm cyst noted on the right, and complex 1.9 x 1.9 cm cyst on the left. Other: No pathologic free abdominal or pelvic fluid. IMPRESSION: 1. Small bilateral ovarian hemorrhagic cysts. 2. Otherwise unremarkable ultrasound of the pelvis. Approved by: Abhi Alvarez M.D. on 06/26/2021 at 15:08
== END ==
PROVIDERS: Referring Provider Physician Assistant; Visit Provider Physician Assistant
DX: R10.2 Pelvic and perineal pain (principal); N83.202 Unspecified ovarian cyst, left side; N83.201 Unspecified ovarian cyst, right side
CPT/HCPCS: 76830; 76856